=== PATIENT | male | born 1940 | race Caucasian/White ===

== ENCOUNTER 2022-02-05 08:00 | Outpatient (CLI) | payer MEDICARE, OTHER ==
--- NOTE | 2022-02-05 12:26 | XRAY Report ---
PROCEDURE: Chest 2 View X-Ray INDICATIONS: PRODUCTIVE COUGH TECHNIQUE: 2 view(s) of the chest. COMPARISON: None. FINDINGS: Surgical changes and devices: None. Lungs and pleura: No pleural effusions or pneumothorax. Mild patchy bilateral perihilar and basilar opacities. Mediastinum: Mediastinal contours are normal. Heart size is normal. Bones and chest wall: No suspicious bony abnormalities. Soft tissues appear unremarkable. IMPRESSION: Mild atypical pneumonia. Reviewed by: Bhupendra Vasquez MD on 02/05/2022 12:25 PM PDT Approved by: Bhupendra Vasquez MD on 02/05/2022 12:25 PM PDT Station ID: [id number]
== END 2022-02-05 23:59 | disposition home or self-care (01) ==
LOC: DI.S 08:00
PROVIDERS: ATTEND Physician Assistant
DX: J18.9 Pneumonia, unspecified organism (principal)

== ENCOUNTER 2022-05-27 19:14 | Outpatient (CLI) | payer MEDICARE, OTHER | END 2022-05-27 19:15 | disposition critical access hospital (66) | LOC: EMS 19:14 | DX: M79.652 Pain in left thigh (principal); R55 Syncope and collapse; W10.8XXA Fall (on) (from) other stairs and steps, initial encounter; Y92.009 Unspecified place in unspecified non-institutional (private) residence as the place of occurrence of the external cause | CPT/HCPCS: A0425; A0429 ==

== ENCOUNTER 2022-05-27 19:28 | Emergency (ER) | payer MEDICARE, OTHER ==
[2022-05-27] MEDS ORDERED: ACETAMINOPHEN 325 MG TABLET PO STA (19:45)
[2022-05-27] MEDS ORDERED: KETOROLAC 15 MG/ML VIAL IVP STA (19:45)
--- NOTE | 2022-05-27 19:47 | ED Physician Documentation ---
PD HPI Fall - Stated complaint Stated Complaint: GLF, LEFT LEG PAIN - Chief complaint Chief Complaint: Neuro - History obtained from History obtained from: Patient - History of Present Illness Mechanism of injury: Tripped Fall distance: Standing position (he and are at a rental place on [facility] and the house has stepdown to living room the he misstepped and fell, landing to left knee and side. He started to get up after, his left thigh hurt, and felt lightheaded, got pale, and almost fainted.) Where injury occurred: Other (rental home) Timing - onset: How many minutes ago (30), Today Injury(ies) location: No: Head, Neck, Chest, Abdomen Associated symptoms: No: LOC (but almost full LOC briefly), Weakness, Paresthesias Worsens with: Movement, Other (standing caused pain in left thigh) Similar symptoms before: Has not had sx before Recently seen: Not recently seen Review of Systems Constitutional: denies: Fever, Chills Nose: denies: Rhinorrhea / runny nose, Congestion Throat: denies: Sore throat Respiratory: denies: Cough GI: denies: Nausea, Vomiting, Diarrhea Skin: denies: Abrasion (s), Laceration (s) Neurologic: reports: Near syncope. denies: Focal weakness, Numbness, Altered mental status, Headache PD PAST MEDICAL HISTORY - Past Medical History Cardiovascular: Coronary artery disease - Past Surgical History Past Surgical History: Yes Cardiovascular: Coronary stent - Present Medications Home Medications: Ambulatory Orders Medication Instructions Recorded Confirmed Omeprazole [PriLOSEC] 20 mg PO DAILY 01/25/15 03/18/16 Clopidogrel [Plavix] 75 mg ORAL DAILY 03/14/16 03/18/16 Gentamicin Sulfate [Gentamicin 1 applic OP QID #1 oint...g. 03/14/16 03/18/16 Sulfate Ophthalmic Ointment] Simvastatin 20 mg ORAL DAILY 03/14/16 03/18/16 Sulfamethoxazole/Trimethoprim 1 each PO BID #14 tablet 03/14/16 03/18/16 [Bactrim Ds Tablet] atenoloL [Atenolol] 25 mg ORAL DAILY 03/14/16 03/18/16 Gentamicin Sulfate [Gentamicin 1 applic OP QID 7 Days oint...g. 03/18/16 Sulfate Ophthalmic Ointment] - Allergies Allergies/Adverse Reactions: Allergies Allergy/AdvReac Type Severity Reaction Status Date / Time No Known Drug Allergies Allergy Verified 05/27/22 19:38 - Social History Does the pt smoke?: No Smoking Status: Never smoker Does the pt drink ETOH?: Yes Does the pt have substance abuse?: No - Immunizations Immunizations are current?: Yes PD ED PE NORMAL - Vitals Vital signs reviewed: Yes - General General: Alert and oriented X 3, No acute distress, Well developed/nourished - HEENT HEENT: Atraumatic - Neck Neck: Supple, no meningeal sign, No bony TTP - Cardiac Cardiac: RRR, No murmur - Respiratory Respiratory: Clear bilaterally - Abdomen Abdomen: Soft, Non tender - Back Back: No spinal TTP - Derm Derm: Normal color, Warm and dry - Extremities Extremities: Other (left lower thigh muscles tender. Quads tendon is intact above knee. no hip pain with rotation nor impaction at the hip. ) - Neuro Neuro: Alert and oriented X 3, No motor deficit, No sensory deficit, Normal speech Results - Vitals Vitals: Vital Signs - 24 hr 05/27/22 05/27/22 19:34 21:26 Temperature 36.2 C L Heart Rate 56 L 53 L Respiratory 14 26 H Rate Blood Pressure 148/117 H 131/55 H O2 Saturation 96 95 Oxygen O2 Source Room air - EKG (time done) 19:30 Rate: Rate (enter#) (55) Rhythm: NSR QRS: Poor R wave progression Ischemia: Normal ST segments, Q waves (inferior and anterior). No: ST elevation c/w ischemia, ST depression - Labs Labs: Laboratory Tests 05/27/22 05/27/22 20:02 20:02 WBC 13.2 H RBC 4.10 L Hgb 12.8 L Hct 38.5 L MCV 93.9 MCH 31.2 H MCHC 33.2 RDW 12.8 Plt Count 238 MPV 8.9 Neut # (Auto) 10.5 H Lymph # (Auto) 1.2 L Preble # (Auto) 1.0 Eos # (Auto) 0.3 Baso # (Auto) 0.0 Absolute Nucleated RBC 0.00 Nucleated RBC % 0.0 Sodium 138 Potassium 3.7 Chloride 105 Carbon Dioxide 25 Anion Gap 8.0 BUN 15 Creatinine 1.0 Estimated GFR (MDRD) 72 L Glucose 162 H Calcium 8.6 Total Bilirubin 1.0 AST 15 ALT 12 Alkaline Phosphatase 64 Total Protein 6.3 L Albumin 3.4 Globulin 2.9 Albumin/Globulin Ratio 1.2 Lipase 28 - Rads (name of study) head CT Radiology: Prelim report reviewed (no ttauma found. no ICH.), See rad report left hip xray Radiology: Prelim report reviewed (no trauma found. no fractures. ), See rad report left knee Radiology: Prelim report reviewed (no trauma found. no fractures. ), See rad report PD MEDICAL DECISION MAKING - ED course Complexity details: reviewed results, re-evaluated patient (normal labs and imaging. Vitals are good and he remains without lightheadedness/etc. He is able to stand and walk on leg after some meds. ), considered differential (left thigh seems muscular, but will get xrays knee and hip. Had fall and is on DOAC, then apparent vasovagal near-syncope when stood up. Will get head CT to r/o ICH.), d/w patient Departure - Departure Disposition: 01 Home, Self Care Clinical Impression: Anticoagulant long-term use, Vasovagal near syncope Fall from slip, trip, or stumble Qualifiers: Encounter type: initial encounter Qualified Code(s): W01.0XXA - Fall on same level from slipping, tripping and stumbling without subsequent striking against object, initial encounter Muscle strain of left thigh Qualifiers: Encounter type: initial encounter Qualified Code(s): S76.912A - Strain of unspecified muscles, fascia and tendons at thigh level, left thigh, initial encounter Condition: Stable Record reviewed to determine appropriate education?: Yes Instructions: ED Strain Muscle Ext, ED Near Syncope Vasovagal Comments: Activity as tolerated but try not to be too vigorous walking or exercise for a few days to allow your muscle improve. Tylenol every 4-6 hours if needed for pains. Continue your other usual medicines. Follow-up with your primary care if your leg he is not better over the next week or so. Discharge Date/Time: 05/27/22 21:26
--- OUTSIDE RECORDS SUMMARY | 2022-05-27 19:54 | EXTERNAL MEDICAL SUMMARY RPT | Continuity of Care Document ---
:1940 Author Organization [place] Address [address] [place] [address] Phone Allergies No information. Encounters No information. Functional Status No information. Immunizations No information. Medications No information. Problems No information. Procedures date description facility +0000 Visit Code Hold [facility] [place] +0000 Ear Lavage, bilateral [facility] [place] Results/Labs No information. Social History date description facility +0000 Former smoker [facility] [place] Vital Signs date measurement value units +0000 BMI BMI 26.27 kg/m2 +0000 BP_diastolic BP_diastolic 62 mm[H g] +0000 BP_systolic BP_systolic 125 mm[Hg] +0000 heart_rate heart_rate 50 /min +0000 height_metric height_metric 182.88 cm +0000 height_standard height_standard 72 in +0000 respiration_rate respiration_rate 17 /min +0000 temperature_metric temperature_metric 36.67 C +0000 temperature_standard temperature_standard 9 8 F +0000 weight_metric weight_metric 87.54 kg +0000 weight_standard weight_standard 193 lb
[2022-05-27 20:06] LABS: BASOPHILS % (AUTO) 0.3 %; EOSINOPHILS # (AUTO) 0.3 10^3/uL (0.0-0.7); EOSINOPHILS % (AUTO) 2.4 %; HCT - HEMATOCRIT 38.5 % (42.0-52.0); HGB - HEMOGLOBIN 12.8 g/dL (14.0-18.0); LYMPHOCYTES # (AUTO) 1.2 10^3/uL (1.5-3.5); LYMPHOCYTES % (AUTO) 9.4 %; MEAN CORPUSCULAR HEMOGLOBIN 31.2 pg (27.0-31.0); MEAN CORPUSCULAR HGB CONC 33.2 g/dL (32.0-36.0); MEAN CORPUSCULAR VOLUME 93.9 fL (80.0-94.0); MEAN PLATELET VOLUME 8.9 fL (7.4-11.4); MONOCYTES % (AUTO) 7.7 %; NEUTROPHILS # (AUTO) 10.5 10^3/uL (1.5-6.6); NEUTROPHILS % (AUTO) 79.4 %; PLT - PLATELET COUNT 238 10^3/uL (130-450); RED CELL DISTRIBUTION WIDTH 12.8 % (12.0-15.0); WHITE BLOOD COUNT 13.2 x10^3/uL (4.8-10.8)
[2022-05-27 20:19] LABS: ALBUMIN 3.4 g/dL (3.2-5.5); ALBUMIN/GLOBULIN RATIO 1.2 (1.0-2.2); CALCIUM 8.6 mg/dL (8.5-10.3); POTASSIUM 3.7 mmol/L (3.5-5.0); TOTAL PROTEIN 6.3 g/dL (6.7-8.2)
--- NOTE | 2022-05-27 20:48 | CT Report ---
PROCEDURE: HEAD WO INDICATIONS: fall down steps; on anticoag TECHNIQUE: Noncontrast 4.5 mm thick angled axial sections acquired from the foramen magnum to the vertex. For r adiation dose reduction, the following was used: automated exposure control, adjustment of mA and/or kV according to patient size. COMPARISON: None. FINDINGS: Image quality: Excellent. CSF spaces: Basal cisterns are patent. No extra-axial fluid collections. Ventricles are normal in size and shape. Brain: No midline shift. No intracranial masses or hemorrhage. Quinones-white matter interface is norm al. Skull and face: Calvarium and visualized facial bones are intact, without suspicious lesions. Sinuses: Visualized sinuses and mastoids are free of acute inflammation but there is chronic appeari ng mucosal thickening mild in overall severity involving the posterior half of the left maxillary sin us.. IMPRESSION: No trauma found, no intracranial hemorrhage seen. Chronic appearing mild mucosal thicken ing involves the left maxillary sinus, without air-fluid level. Reviewed by: Shad Zambrano MD on 05/27/2022 8:46 PM PDT Approved by: Shad Zambrano MD on 05/27/2022 8:46 PM PDT Station ID: [id number]
--- NOTE | 2022-05-27 20:49 | XRAY Report ---
PROCEDURE: Hip w/Pelvis 2-3V LT INDICATIONS: fell down steps TECHNIQUE: AP pelvis with lateral view(s) of the pelvis and left hip. COMPARISON: None. FINDINGS: Bones: No fractures or dislocations. Pelvic ring appears intact. No suspicious bony lesions. Soft tissues: The visualized bowel gas pattern is normal. No suspicious soft tissue calcifications. IMPRESSION: No trauma found. Reviewed by: Shad Zambrano MD on 05/27/2022 8:48 PM PDT Approved by: Shad Zambrano MD on 05/27/2022 8:48 PM PDT Station ID: [id number]
--- NOTE | 2022-05-27 20:50 | XRAY Report ---
PROCEDURE: Knee 3 View LT INDICATIONS: fall down steps TECHNIQUE: 3 views of the left knee(s) were acquired. COMPARISON: None. FINDINGS: Bones: No fractures or dislocations. No suspicious bony lesions. Soft tissues: No joint effusion. No suspicious soft tissue calcifications. IMPRESSION: No trauma found. Reviewed by: Shad Zambrano MD on 05/27/2022 8:48 PM PDT Approved by: Shad Zambrano MD on 05/27/2022 8:48 PM PDT Station ID: [id number]
[2022-05-27 21:28] VITALS: BP 131/55
== END 2022-05-27 21:26 | disposition home or self-care (01) ==
LOC: EDUNIT# → ED 19:28
DX: R55 Syncope and collapse (principal); S76.912A Strain of unspecified muscles, fascia and tendons at thigh level, left thigh, initial encounter; W18.39XA Other fall on same level, initial encounter; Y93.89 Activity, other specified; Y92.008 Other place in unspecified non-institutional (private) residence as the place of occurrence of the external cause; Z79.01 Long term (current) use of anticoagulants
CPT/HCPCS: 36415; 70450; 73502; 73562; 80053; 83690; 85025; 93005; 96374; 99284; A9270

== ENCOUNTER 2022-09-01 11:46 | Outpatient (CLI) | payer MEDICARE, OTHER ==
--- NOTE | 2022-09-01 11:10 | XRAY Report ---
PROCEDURE: Chest 2 View X-Ray INDICATIONS: SHORTNESS OF BREATH/PRODUCTIVE COUGH TECHNIQUE: 2 views of the chest were acquired. COMPARISON: 02/05/2022 FINDINGS: Surgical changes and devices: None. Lungs and pleura ill-defined patchy airspace opacities are seen in bilateral mid to lower lung jacobs . No pleural effusion or pneumothorax. Mediastinum: Mildly tortuous thoracic aorta is seen with aortic. Heart size is enlarged. Bones and chest wall: No suspicious bony abnormalities. Soft tissues appear unremarkable. IMPRESSION: 1. Suggestion of ill-defined patchy infiltrates scattered in bilateral lung jacobs most notably in le ft lower lobe. No pleural effusion or pneumothorax. Clinical correlation and radiographic follow-up i s recommended. Reviewed by: Willem Malhotra MD on 09/01/2022 11:08 AM PST Approved by: Willem Malhotra MD on 09/01/2022 11:08 AM [facility] Station ID: [id number]
== END 2022-09-01 11:47 | disposition home or self-care (01) ==
LOC: DI.S 11:46
PROVIDERS: ATTEND Physician Assistant Medical
DX: R06.02 Shortness of breath (principal); R05.9 Cough, unspecified; R91.8 Other nonspecific abnormal finding of lung field